=== PATIENT | female | born 1975 | race Caucasian/White ===

== ENCOUNTER 2020-01-31 06:52 | Emergency (ER) | payer BC ==
[2020-01-31 06:59] VITALS: BP 136/85
[2020-01-31] MEDS ORDERED: oxyCODONE/Acetamin 5/325 MG* TAB PO ONE (07:27)
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
[2020-01-31] MEDS ORDERED: Acetaminophen TAB* 325 MG PO ONE (07:40)
== END 2020-01-31 08:05 | disposition home or self-care (01) ==
LOC: ED 06:52
DX: S62.307A Unspecified fracture of fifth metacarpal bone, left hand, initial encounter for closed fracture (principal); W22.8XXA Striking against or struck by other objects, initial encounter; Y93.89 Activity, other specified; Y92.9 Unspecified place or not applicable; R20.0 Anesthesia of skin
CPT/HCPCS: 99282; A9270-GY